=== PATIENT | male | born 1950 | race Caucasian/White ===

== ENCOUNTER 2022-05-21 09:03 | Outpatient (CLI) | payer MEDICARE | END 2022-05-21 09:04 | disposition home or self-care (01) | LOC: NM 09:03 | PROVIDERS: ATTEND Internal Medicine Endocrinology, Diabetes & Metabolism | DX: E21.0 Primary hyperparathyroidism (principal); M81.0 Age-related osteoporosis without current pathological fracture | CPT/HCPCS: 77080; 78072; A9500 ==

== ENCOUNTER 2022-10-05 09:58 | Outpatient (CLI) | payer MEDICARE | END 2022-10-05 09:59 | disposition home or self-care (01) | LOC: NM 09:58 | PROVIDERS: ATTEND Internal Medicine Endocrinology, Diabetes & Metabolism | DX: E21.0 Primary hyperparathyroidism (principal) | CPT/HCPCS: 78072; A9500 ==

== ENCOUNTER 2022-11-04 07:17 | Outpatient (CLI) | payer MEDICARE ==
[2022-11-04 09:19] LABS: Calcium 10.1 mg/dL (7.8-10.44)
[2022-11-04] MEDS ORDERED: Iopamidol 370 76% 100 ML VIAL ONE (09:47)
== END 2022-11-04 07:18 | disposition home or self-care (01) ==
LOC: CT 07:17
PROVIDERS: ATTEND Student in an Organized Health Care Education/Training Program
DX: D35.1 Benign neoplasm of parathyroid gland (principal); E21.3 Hyperparathyroidism, unspecified
CPT/HCPCS: 70492; 82310; 82565; 83970; Q9967